=== PATIENT | male | born 1955 | race Caucasian/White ===

== ENCOUNTER → 2024-01-26 08:03 | Outpatient (REF) | payer OTHER, SELFPAY | LOC: DHCBC/DCA 08:03 | PROVIDERS: ATTENDING PHYSICIAN Internal Medicine Cardiovascular Disease; FAMILY PHYSICIAN Family Medicine | DX: I48.19 Other persistent atrial fibrillation (principal); I10 Essential (primary) hypertension; Z98.890 Other specified postprocedural states; I42.9 Cardiomyopathy, unspecified; I34.0 Nonrheumatic mitral (valve) insufficiency | CPT/HCPCS: 78452; 93017; A9500; J2785 ==

== ENCOUNTER 2024-10-05 07:43 | Emergency (ER) | payer OTHER, SELFPAY ==
[2024-10-05 07:45] VITALS: BP 125/86
--- NOTE | 2024-10-05 10:02 | ED.MUSCINJ ---
HPI-Injury
General
Chief Complaint: Musculo-Skeletal Complaint
Source: patient
Exam Limitations: none
Time Seen by Provider: 10/05/24 09:14
History of Present Illness-Injury
Initial Injury comments:
69-year-old male presents complaining of right shoulder right elbow and right ankle pain after falling out of his truck yesterday. 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 He tried to hold onto with his right arm while falling but injured
himself. He is having difficulty walking secondary to the pain in his ankle. No other complaints.
Past History
Past History
ED Past Medical History: HTN, Hypercholesterolemia and Other (Obesity, lumbar disc disease)
ED Past Surgical History: Appendectomy, Orthopedic (Total knee replacement) and Other (Partial gastrectomy for treatment of obesity, 2007)
Social History
Tobacco: Former smoker
Alcohol: Occasional
Personal:
Living: with family
Employment: Employed
Family History
Family History: Negative Early CAD
Phy Exam
Physical Exam
Physical Exam:
General: Well-appearing obese male no acute respiratory distress
Musculoskeletal exam: Right shoulder tender diffusely no deformities slightly decreased range of motion. The right elbow is tender over the medial aspect of the elbow he has near full extension but flexion is not full. He has increased pain with
stressing the medial aspect of the elbow. Right ankle swollen and tender diffusely without deformity.
Skin is intact without laceration or abrasion
Injury Course
Orders/Labs/Results
Orders:
Orders
10/05/24 07:49
Shoulder, Right, Trauma [CR Shoulder, Trauma - Right] Urgent
Comment:
Reason For Exam: injury
10/05/24 07:50
Ankle, Right 3 view CR [CR Ankle - Right Min 3 Views *] Urgent
Comment:
Reason For Exam: injury
Elbow, 3 View, Right [CR Elbow - Right Min 3 Views] Urgent
Comment:
Reason For Exam: injury
MDM/Problems Addressed
Differential Diagnosis Includes:
Fall onto right side no head strike. Right shoulder elbow and right ankle pain. Consider fractures versus sprains versus contusions. X-rays of the right shoulder elbow and ankle were ordered through triage which I have personally visualized and
are negative for acute fractures. There is significant arthritis in all of these joints. Patient having difficulty ambulating secondary to his ankle pain. Will attempt to place a boot for support.
*Critical Care Note
Total Time (30-74mins, 75-104mins- exclusive of procedures): Not Applicable
ED Attending Note
-
Portions of this chart may have been created with voice recognition software.� Occasional wrong word or��sound alike� substitutions may have occurred due to the inherent limitations of voice recognition software.
Discharge Plan
Departure
Patient Disposition: Home (Routine Discharge)
Date of Disposition: 10/05/24
Time of Disposition: 10:24
Patient with high blood pressure during this ER visit?: No
Discharge Problem:
Ankle sprain
Instructions: Muscle and Bone Pain (DC)
Prescriptions:
No Action
cyclobenzaprine 10 MG tablet
10 mg PO DAILY PRN (Reason: muscle spasms)
Eliquis 5 mg tablet
5 mg PO BID
lisinopril 5 mg Tablet
5 mg PO DAILY Qty: 30 0RF
pantoprazole [Protonix] 40 mg tablet,delayed release (DR/EC)
40 mg PO DAILY Qty: 30 0RF
amiodarone 200 mg tablet
200 mg PO DAILY Qty: 0 0RF
metoprolol succinate 25 mg Tablet Extended Release 24 Hr
50 mg PO BID Qty: 60 0RF
naproxen 500 mg Tablet
500 mg PO PRN PRN (Reason: pain)
Referrals:
Han Hermosillo MD [Family Provider] -
Activity Restrictions/Additional Instructions:
Rest. Use Tylenol for pain. Use boot for support when ambulating. Return if worse otherwise follow-up with your orthopedic doctor
Interventions
Interventions:
*Risk Screen - Suicide Last Done: 10/05/24 07:45
*General Assessment Last Done: 10/05/24 07:45
*Neglect/Abuse Screening Last Done: 10/05/24 07:45
ED- Fall Risk Assessment Last Done: 10/05/24 09:59
ED-Musculoskeletal Assessment Last Done: 10/05/24 09:59
Discharge Date and Time
Print Language: OCCITAN
[2024-10-05 10:38] VITALS: BP 149/79
== END 2024-10-05 10:39 | disposition home or self-care (01) ==
LOC: EMR 07:43
PROVIDERS: EMERGENCY PHYSICIAN Emergency Medicine; FAMILY PHYSICIAN Family Medicine
DX: S93.409A Sprain of unspecified ligament of unspecified ankle, initial encounter (principal); W19.XXXA Unspecified fall, initial encounter; I10 Essential (primary) hypertension; E78.00 Pure hypercholesterolemia, unspecified; E66.9 Obesity, unspecified; Z87.891 Personal history of nicotine dependence; Z90.49 Acquired absence of other specified parts of digestive tract; Z96.659 Presence of unspecified artificial knee joint
CPT/HCPCS: 99283; 73030; 73080; 73610

== ENCOUNTER → 2024-12-20 07:19 | Outpatient (REF) | payer OTHER, SELFPAY | LOC: HWRCS 07:19 | PROVIDERS: ATTENDING PHYSICIAN Internal Medicine Cardiovascular Disease; FAMILY PHYSICIAN Family Medicine | DX: I50.32 Chronic diastolic (congestive) heart failure (principal) | CPT/HCPCS: 93306 ==

== ENCOUNTER → 2024-12-23 09:38 | Outpatient (REF) | payer OTHER, SELFPAY | LOC: HWRAD 09:38 | PROVIDERS: ATTENDING PHYSICIAN Nurse Practitioner; FAMILY PHYSICIAN Family Medicine | DX: K70.30 Alcoholic cirrhosis of liver without ascites (principal); D50.0 Iron deficiency anemia secondary to blood loss (chronic) | CPT/HCPCS: 76700 ==

== ENCOUNTER → 2025-01-12 09:44 | Outpatient (REF) | payer OTHER, SELFPAY | LOC: HWRAD 09:44 | PROVIDERS: ATTENDING PHYSICIAN Orthopaedic Surgery Hand Surgery; FAMILY PHYSICIAN Family Medicine | DX: M19.019 Primary osteoarthritis, unspecified shoulder (principal) | CPT/HCPCS: 73200 ==

== ENCOUNTER → 2025-01-29 06:20 | Outpatient (REF) | payer OTHER, SELFPAY | LOC: MRI 3T 06:20 | PROVIDERS: ATTENDING PHYSICIAN Orthopaedic Surgery Hand Surgery; FAMILY PHYSICIAN Family Medicine | DX: M25.511 Pain in right shoulder (principal) | CPT/HCPCS: 73221 ==

== ENCOUNTER → 2025-02-17 07:24 | Outpatient (REF) | payer OTHER, SELFPAY | LOC: HWRCS 07:24 | PROVIDERS: ATTENDING PHYSICIAN Internal Medicine Cardiovascular Disease; FAMILY PHYSICIAN Family Medicine | DX: I42.9 Cardiomyopathy, unspecified (principal); I48.91 Unspecified atrial fibrillation | CPT/HCPCS: 78452; 93017; A9500; J2785 ==

== ENCOUNTER 2025-05-13 00:29 | Observation (INO) | payer OTHER, SELFPAY ==
[2025-05-12 18:21] VITALS: BP 111/68
[2025-05-12 18:58] LABS: ALT (SGPT) 15 U/L (0-50); AST (SGOT) 25 U/L (17-59); Albumin 4.7 g/dl (3.5-5.0); Alkaline Phosphatase 61 U/L (38-126); Blood Urea Nitrogen 35 mg/dl (9-20); Calcium 8.9 mg/dl (8.4-10.2); Carbon Dioxide 20 mmol/L (22-30); Chloride 99 mmol/L (98-107); Glucose 115 mg/dl (70-99); Potassium 4.8 mmol/L (3.5-5.1); Sodium 132 mmol/L (135-145); Total Protein 7.9 g/dl (6.3-8.2); eGFR 39.99
[2025-05-12 19:00] LABS: Urine Character Clear (Clear)
[2025-05-12 19:38] LABS: Hematocrit 42.4 % (39.0-52.0); Hemoglobin 14.2 g/dL (13.0-18.0); Mean Corp Hgb Conc. 33.5 g/dL (33.0-37.0); Mean Corpuscular Volume 91.0 fL (80.0-94.0); Nucleated Red Blood Cells % 0 % (-); Platelet Count 107 10^3/uL (130-400); Red Cell Dist. Width 13.1 % (11.5-14.5)
[2025-05-12 19:56] LABS: Urine Red Blood Cell >100 /HPF (0-2); Urine White Cell 26-30 /HPF (0-5)
[2025-05-12 21:08] VITALS: BP 121/67
[2025-05-12 21:24] VITALS: BMI 44.0
[2025-05-12] MEDS: ROCEPHIN 1000 MG IV (21:43)
[2025-05-12] MEDS: NSS 1000 IV (21:45)
[2025-05-12 22:31] VITALS: BP 110/73
--- NOTE | 2025-05-12 22:58 | ED.GENMED ---
History of Present Illness
General
Chief Complaint: Male Genito-Urinary Symptoms
Time Seen by Provider: 05/12/25 20:54
History of Present Illness
History of Present Illness:
70-year-old male presents emergency department for evaluation of urinary urgency, frequency, and dark urine for the past 1 to 2 days. Reports lower abdominal discomfort as well. No flank pain or nausea/vomiting. He has a prior history of urinary
urgency and follows with urology however states that this is much worse than normal.
Past History
Past History
ED Past Medical History: HTN, Hypercholesterolemia and Other (Obesity, lumbar disc disease)
ED Past Surgical History: Appendectomy, Orthopedic (Total knee replacement) and Other (Partial gastrectomy for treatment of obesity, 2007)
Social History
Tobacco: Former smoker
Alcohol: Occasional
Personal:
Living: with family
Employment: Employed
Family History
Family History: Negative Early CAD
Review of Systems
Review of Systems
Allergies reviewed?: Yes
All Other Systems: ROS reviewed and negative except as documented in HPI and ROS
Phy Exam
Physical Exam
Physical Exam:
GEN: Well appearing, NAD, WDWN
HEENT: Oral mucosa moist, no scleral icterus
Cardiac: Mildly tachycardic, regular
Lung: No respiratory distress, no tachypnea, lungs clear to auscultation
Abdomen: Soft, grossly nontender although obesity limits exam
MSK: No gross deformity or injuries
Skin: Good color, no pallor or jaundice, no rashes
Neuro: AO x3, moves all extremities freely
Psych: Calm, cooperative
Course
Orders/Labs/Results
Orders:
Orders
05/12/25 18:34
CMP [Comprehensive Metabolic Panel] Urgent
Complete Blood Count/With Diff Urgent
Urinalysis Reflex To Culture Urgent
Date Specimen was Collected: 05/12/25
Time Specimen was Collected: 18:25
Urine Microscopic Reflex Cult Urgent
Urine Culture Urgent
SITA Source: U
Specimen Description:
Date Specimen was Collected: 05/12/25
Time Specimen was Collected: 18:25
05/12/25 21:36
CT Abd/pel Without Iv Or Oral Urgent
Comment:
Reason For Exam: UTI/hematuria
0.9% Sodium Chloride 1000 ml [Nss] 1,000 ml IV BOLUS
CefTRIAXone [Rocephin] 1,000 mg IV NOW STA
05/12/25 22:45
Blood Culture Q30M
SITA Source: Blood/Venous
Specimen Description:
05/12/25 22:46
Lactic Acid Q4H
Comment: CANCEL 2nd LACTIC ACID IF 1st LACTIC ACID IS LESS THAN 2
Blood Culture Q30M
SITA Source: Blood/Venous
Specimen Description:
05/13/25 02:45
Lactic Acid Q4H
Comment: CANCEL 2nd LACTIC ACID IF 1st LACTIC ACID IS LESS THAN 2
Abnormal Lab Results
05/12/25
18:34
WBC 18.8 H 10^3/uL
(4.8-10.8)
RBC 4.66 L 10^6/uL
(4.70-6.10)
Plt Count 107 L 10^3/uL
(130-400)
MPV 12.8 H fL
(7.4-10.4)
Abs Immat Gran (auto) 0.1 H 10^3/uL
(0-0.05)
Absolute Neuts (auto) 16.1 H 10^3/uL
(1.4-6.5)
Absolute Monos (auto) 1.0 H 10^3/uL
(0.1-0.6)
Neutrophils % 85.2 H %
(42.2-75.2)
Lymphocytes % 8.6 L %
(20.5-51.1)
Sodium 132 L mmol/L
(135-145)
Carbon Dioxide 20 L mmol/L
(22-30)
BUN 35 H mg/dl
(9-20)
Creatinine 1.8 H mg/dL
(0.7-1.3)
Glucose 115 H mg/dl
(70-99)
Urine Ketones 1+ A
(Negative)
Ur Occult Blood Reflex 4+ A
(Negative)
Urine Bilirubin 1+ A
(Negative)
Leukocyte Esterase Rfl 2+ A
(Negative)
Urine RBC >100 A /HPF
(0-2)
Urine WBC (Reflex) 26-30 A /HPF
(0-5)
Urine Bacteria (Reflex) Few A
(Negative)
Urine Albumin (Reflex) 3+ A
(Neg - Trace)
05/12/25 18:34
05/12/25 18:34
Vital Signs
Initial and Last Documented VS:
Initial Vital Signs
Temp Pulse Resp BP Pulse Ox
98.4 F 93 18 111/68 93
05/12/25 18:21 05/12/25 18:21 05/12/25 18:21 05/12/25 18:21 05/12/25 18:21
Last Documented Vital Signs
Temp Pulse Resp BP Pulse Ox
100.0 F 76 24 121/67 94
05/12/25 21:08 05/12/25 22:17 05/12/25 22:17 05/12/25 21:08 05/12/25 21:45
MDM/Problems Addressed
MDM/Problems Addressed:
Clinical presentation most consistent with febrile UTI, will admit for IV antibiotics
*Pulse Oximetry
SaO2: 94
Nasal Cannula flow liters per minute: 2
Oxygen Mode of Delivery: Room air
Patient hypoxic: no
*Critical Care Note
Total Time (30-74mins, 75-104mins- exclusive of procedures): Not Applicable
ED Attending Note
-
Portions of this chart may have been created with voice recognition software.� Occasional wrong word or��sound alike� substitutions may have occurred due to the inherent limitations of voice recognition software.
Discharge Plan
Departure
Patient Disposition: Admit
Date of Disposition: 05/12/25
Time of Disposition: 23:03
Admit to: Med/Surg
Presentation/result/management discussed w/ accepting MD/DO: Hospitalist
Discharge Problem:
Urinary tract infection
Prescriptions:
No Action
Eliquis 5 mg tablet
5 mg PO .SEE BELOW
Patient Comments:
05/12/2025, currently on hold as of 2 days ago per pt.; pt. was taking 5 mg BID before placed on hold.
pantoprazole [Protonix] 40 mg tablet,delayed release (DR/EC)
40 mg PO DAILY Qty: 30 0RF
amiodarone 200 mg tablet
200 mg PO DAILY Qty: 0 0RF
metoprolol succinate 50 mg Tablet Extended Release 24 Hr
50 mg PO BID
spironolactone 25 mg tablet
25 mg PO DAILY
lisinopril 10 mg Tablet
10 mg PO DAILY
diphenhydramine-acetaminophen [Tylenol PM Extra Strength] 25-500 mg Tablet
2 tab PO BIDPRN PRN (Reason: mild pain)
Referrals:
Han Hermosillo MD [Family Provider, Family Practice]
Interventions
Interventions:
*Risk Screen - Suicide Last Done: 05/12/25 18:21
*General Assessment Last Done: 05/12/25 18:21
*Neglect/Abuse Screening Last Done: 05/12/25 18:21
*ED- Fall Risk Assessment Last Done: 05/12/25 21:24
*ED COVID-19 Vaccine History Last Done: 05/12/25 18:21
ED-Male Genitourinary Assessment Last Done: 05/12/25 21:23
Discharge Date and Time
Print Language: CENTRAL AFRICAN
[2025-05-12 23:00] VITALS: BP 110/74
--- NOTE | 2025-05-12 23:19 | HPS.HSE ---
Family Physician
-
Family Physician: Han Hermosillo
Chief Complaint
-
urinary symptoms
History of Present Illness
Patient is a 70-year-old male with past medical history significant for hypertension, hypercholesteremia, anemia, alcoholic cirrhosis of liver without ascites, atrial fibrillation, thrombocytopenia, obesity, lumbar disc disease and BPH who presented
to [facility] ED for evaluation of urinary symptoms. Patient reports having urinary urgency, frequency and dark urine for past day or two. He does confirm lower abdominal discomfort. He does report history of urinary urgency and follows with Urologist but
this is significantly worse than previous episodes. He reports calling Urology office and Dr. Elmore instructed him to hold Eliquis. Denies any cough, shortness of breath, chest pain, nausea, vomting or bowel changes.
Medical History
Past Medical History
Past Medical History: Reports Other
Additional Past Medical History:
hypertension
hypercholesteremia
anemia
alcoholic cirrhosis of liver without ascites
atrial fibrillation
thrombocytopenia
obesity
lumbar disc disease
BPH
Past Surgical History: Reports Other
Additional Past Surgical History:
Appendectomy
Cholecystectomy(2011)
knee replacement
b/l tkr
bariatric surg
PVI ablation 07/03/23
Social History
Tobacco: Former Smoker
Alcohol: Occasional
Drug: None
Personal: Single
Living: Alone
Family History
Family History: Not pertinent
Allergies / Home Medications
Allergies reflects when Allergies were last updated in [facility].
Home Medications with original date entered in [facility]
Allergy/Medication List:
Allergies
Allergy/AdvReac Type Severity Reaction Status Date / Time
No Known Allergies Allergy Verified 05/12/25 18:24
Home Medications
apixaban 5 mg tablet (Eliquis) 5 mg PO .SEE BELOW Blood clot prevention/tx 02/17/23
pantoprazole 40 mg tablet,delayed release (Protonix) 40 mg PO DAILY #30 tabs 02/21/23
amiodarone 200 mg tablet 200 mg PO DAILY Arrhythmia #0 tabs 07/03/23
diphenhydramine 25 mg-acetaminophen 500 mg tablet (Tylenol PM Extra Strength) 2 tab PO BIDPRN PRN mild pain 05/12/25
lisinopril 10 mg tablet 10 mg PO DAILY 05/12/25
metoprolol succinate 50 mg tablet,extended release 24 hr 50 mg PO BID 05/12/25
spironolactone 25 mg tablet 25 mg PO DAILY 05/12/25
Review of Systems
-
History Source: Patient
Constitutional: Reports Fever and Chills
EENT: Reports No Symptoms
Respiratory: Reports No Symptoms
Cardiac: Reports No Symptoms
Abdomen/GI: Reports No Symptoms
: Reports Frequency, Urgency and Dark Urine
Musculoskeletal: Reports No Symptoms
Skin: Reports No Symptoms
Neurological: Reports No Symptoms
Endocrine: Reports No Symptoms
Hematologic/Lymphatic: Reports No Symptoms
Psych: Reports No Symptoms
Physical Exam
Vital Signs
Vital Signs
Temp Pulse Resp BP Pulse Ox
99.7 F 79 20 110/74 96
05/12/25 23:17 05/12/25 23:15 05/12/25 23:15 05/12/25 23:00 05/12/25 23:15
Physical Exam
General: Well Developed, Well Nourished, No Apparent Distress and Morbidly Obese
HEENT: NormoCephalic, Moist mucous membranes and Atraumatic
Respiratory: Clear and Non Labored Respirations
Cardiac: S1/S2, Regular Rhythm and Tachycardia
GI: Soft, Non Tender, Non Distended and Normal Bowel Sounds
Rectal: Deferred by Provider
Genito-urinary: Deferred by me
Musculoskeletal: No Clubbing, No Cyanosis and No Edema
Skin: IV/Catheter Site
Neuro: Awake, Alert, AO x 3 and Nonfocal/grossly intact
Psych: Calm
Laboratory Results
-
05/12/25 18:34
05/12/25 18:34
Laboratory Results
Lactic Acid 1.2 mmol/L (0.7-2.0) 05/12/25 22:46
Total Bilirubin 1.2 mg/dl (0.2-1.3) 05/12/25 18:34
AST 25 U/L (17-59) 05/12/25 18:34
ALT 15 U/L (0-50) 05/12/25 18:34
Alkaline Phosphatase 61 U/L (38-126) 05/12/25 18:34
Data Reviewed
-
CT Scan: Report Reviewed by me (Abd/Pel: 1. Mild diffuse urinary bladder wall thickening and trabeculation. Diagnostic possibilities are (1) acute cystitis or (2) chronic urinary bladder outlet obstruction. 2. Mild enlargement of the prostate
gland containing radiation seeds. 3. Large amount of perinephric fat stranding arou)
Lab Data: Labs Reviewed by me (WBC 18.8, plt 107, Neut 85.2, Na+ 132, BUN 35, Creat 1.8, eGFR 39.99, Lactic 1.2)
Impression/Plan
-
IMPRESSION/PLAN:
#urinary symptoms (urgency/frequency/dark urine) likely 2/2 UTI
#BPH
WBC 18.8, Neut 85.2, Lactic 1.2
UA: indicative of UTI
Urine Cx: pending
Blood Cx: pending
Abd/Pel CT: 1. Mild diffuse urinary bladder wall thickening and trabeculation. Diagnostic possibilities are (1) acute cystitis or (2) chronic urinary bladder outlet obstruction.
2. Mild enlargement of the prostate gland containing radiation seeds.
3. Large amount of perinephric fat stranding around both kidneys which is likely secondary to chronic bilateral renal disease. Acute pyelonephritis is an alternative less likely diagnostic possibility.
4. Severe colonic diverticulosis.
5. Mild hepatosplenomegaly.
6. Previous cholecystectomy, appendectomy, and sleeve gastrectomy.
7. Fusiform infrarenal abdominal aortic aneurysm (2.6 cm diameter).
8. Severe calcific atherosclerotic plaque in the coronary arteries.
9. Very severe discogenic degenerative disease at L4/L5 and L5/S1.
10. Grade 2 anterolisthesis of L5 on S1.
- Admit to med/surg
- IV Rocephin
- IVF NSS 80cc/hr
- supportive care
- bladder scan/straight cath protocol
#acute kidney injury
Na+ 132, BUN 35, Creat 1.8, eGFR 39.99
- IVF
- monitor BMP
#hypertension
- continue lisinopril, metoprolol and spironolactone
#atrial fibrillation
- amiodarone
- Eliquis on hold
#anemia
hgb 14.2, hct 42.4
- stable
- monitor CBC
#thrombocytopenia
plt 107
- stable
- monitor CBC
#obesity
s/p gastric bypass
#hypercholesteremia
#lumbar disc disease
#alcoholic cirrhosis of liver without ascites
Code status: full code
DVT prophylaxis: SCDs
--- NOTE | 2025-05-12 23:48 | W.PN.UPDATE ---
Update Note
Progress Note Update
Brief admit note.
Please see midlevel note for full details
70-year-old man presents for evaluation of urinary urgency, frequency, and dark urine for the past 1 to 2 days. He Reports lower abdominal discomfort as well. No flank pain or nausea/vomiting. He has a prior history of urinary urgency and follows
with urology however states that this is much worse than normal. However, at the time of admit he told me that he was feeling better once he came to the ED.
Past History
essential HTN,
Hypercholesterolemia
Obesity,
lumbar disc disease
Appendectomy,
Total knee replacement
Partial gastrectomy for treatment of obesity, 2007
CT results:
1. Mild diffuse urinary bladder wall thickening and trabeculation. Diagnostic possibilities are (1) acute cystitis or (2) chronic urinary bladder outlet obstruction.
2. Mild enlargement of the prostate gland containing radiation seeds.
3. Large amount of perinephric fat stranding around both kidneys which is likely secondary to chronic bilateral renal disease. Acute pyelonephritis is an alternative less likely diagnostic possibility.
4. Severe colonic diverticulosis.
5. Mild hepatosplenomegaly.
6. Previous cholecystectomy, appendectomy, and sleeve gastrectomy.
7. Fusiform infrarenal abdominal aortic aneurysm (2.6 cm diameter).
8. Severe calcific atherosclerotic plaque in the coronary arteries.
9. Very severe discogenic degenerative disease at L4/L5 and L5/S1.
10. Grade 2 anterolisthesis of L5 on S1.
Exam:
Calm, NAD
[id number], no MRG
Lungs clear
Abd soft, NT, ND
A/P:
70 man with probable UTI
1. Probable UTI with WBC 0f 18, has known large prostate.
IV abx (ceftriaxone)
Follow urine cultures
Continue current meds for PMH
See midlevel note for further details.
[2025-05-13] VITALS: BP 126/80
[2025-05-13 01:00] VITALS: BP 143/88
[2025-05-13 01:35] VITALS: BP 131/76; BMI 43.6
[2025-05-13 01:47] VITALS: BMI 43.6
[2025-05-13] MEDS: NSS 1000 IV ×2 (02:00→14:33)
[2025-05-13 05:42] LABS: Hematocrit 37.8 % (39.0-52.0); Hemoglobin 12.7 g/dL (13.0-18.0); Mean Corp Hgb Conc. 33.6 g/dL (33.0-37.0); Mean Corpuscular Volume 90.6 fL (80.0-94.0); Platelet Count 82 10^3/uL (130-400); Red Cell Dist. Width 13.0 % (11.5-14.5)
[2025-05-13 06:36] LABS: Blood Urea Nitrogen 33 mg/dl (9-20); Calcium 8.3 mg/dl (8.4-10.2); Carbon Dioxide 18 mmol/L (22-30); Chloride 101 mmol/L (98-107); Estimated Creatinine Clearance 62 ml/min; Glucose 101 mg/dl (70-99); Potassium 4.3 mmol/L (3.5-5.1); Sodium 130 mmol/L (135-145); eGFR 46.06
--- NOTE | 2025-05-13 07:17 | PTCARENOTE ---
Patient arrived on unit from ED via stretcher. Patient able to stand-pivot from stretcher to bed in 338-2 on . Patient AAOx3 and able to make needs known. No c/o pain. Using urinal at bedside. Patient brought own CPAP from home. Oriented to
unit, call vega within reach. Plan of care ongoing.
[2025-05-13 07:51] VITALS: BP 119/64
[2025-05-13] MEDS: TOPROL XL 50 MG PO ×2 (08:08→20:57)
[2025-05-13] MEDS: PACERONE 200 MG PO (08:08)
[2025-05-13] MEDS: ZESTRIL 10 MG PO (08:08)
[2025-05-13] MEDS: PROTONIX 40 MG PO (08:08)
[2025-05-13] MEDS: ALDACTONE 25 MG PO (08:08)
--- NOTE | 2025-05-13 08:18 | W.PN.HOSP.TC ---
Today's Communication/Plan
-
see plan
Assessment / Plan
Assessment / Plan
Gen: NAD, AAOx3.
Eyes: EOMI, PERRLA, no scleral icterus.
Neck: supple.
CV: RRR, +S1/S2, no m/r/g.
Resp: CTAB, no rales, wheezes, or rhonchi.
Abd: +BS, soft, NT, ND
Skin: No rashes.
Neuro: CN 2-12 intact, non-focal.
Psych: Normal mood and affect.
CT A/P:
1. Mild diffuse urinary bladder wall thickening and trabeculation. Diagnostic possibilities are (1) acute cystitis or (2) chronic urinary bladder outlet obstruction.
2. Mild enlargement of the prostate gland containing radiation seeds.
3. Large amount of perinephric fat stranding around both kidneys which is likely secondary to chronic bilateral renal disease. Acute pyelonephritis is an alternative less likely diagnostic possibility.
4. Severe colonic diverticulosis.
5. Mild hepatosplenomegaly.
6. Previous cholecystectomy, appendectomy, and sleeve gastrectomy.
7. Fusiform infrarenal abdominal aortic aneurysm (2.6 cm diameter).
8. Severe calcific atherosclerotic plaque in the coronary arteries.
9. Very severe discogenic degenerative disease at L4/L5 and L5/S1.
10. Grade 2 anterolisthesis of L5 on S1.
Sepsis (POA) due to acute UTI:
-underlying BPH
-sepsis, a/e/b leukocytosis, tachypnea, source UTI (POA)
-cont IV Rocephin
-follow BCxs/UCx
-bladder scans, urinary retention protocol
VERONICA:
-cont IVFs
-stop aldactone/Lisinopril
-c/s renal
Other problems:
Hyponatremia, trend
Essential HTN: cont BB, hold JORGE LUIS/aldactone with VERONICA
Persistent atrial fibrillation: Cont Amio/BB, resume Eliquis
Anemia: drop in Hb likely dilutional, trend Hb
Chronic thrombocytopenia
Morbid obesity due to excess calories, h/o gastric bypass
HLD
Alcoholic cirrhosis without ascites
FULL/Eliquis
Total time spent on today's encounter was 50 minutes which included time spent in counseling the patient/family regarding diagnosis and treatment plan as listed above, goals of care, and symptom management. Case was discussed with nursing staff,
specialists, and care coordinators/case management. All labs and imaging personally reviewed by me. Remainder the time spent in detailed review of previous records, lab data, imaging, and other medical provider documentation.
Anticipated Discharge: 24 - 48 hours
Subjective/Interval History
-
Date of Service: May 13, 2025
No new complaints.
Objective Data
-
Labs:
Laboratory Results
05/13/25
05:12
WBC 15.7 H
Hgb 12.7 L
Hct 37.8 L
Plt Count 82 L D
Sodium 130 L
Potassium 4.3
Chloride 101
Carbon Dioxide 18 L
BUN 33 H
Creatinine 1.6 H
Glucose 101 H
Calcium 8.3 L
Vital Signs:
Vital Signs
Temp Pulse Resp BP Pulse Ox
98.7 F 94 16 119/64 93
05/13/25 07:51 05/13/25 08:08 05/13/25 07:51 05/13/25 08:08 05/13/25 07:51
I&O
05/12/25 05/13/25 05/14/25
06:59 06:59 06:59
Intake Total 480 / 480
Output Total 425 / 425
Balance 55 / 55
[2025-05-13 08:51] LABS: Hepatitis C Antibody Negative (Negative)
[2025-05-13] MEDS: ELIQUIS 5 MG PO ×2 (11:07→20:57)
--- NOTE | 2025-05-13 13:54 | W.CON.NEPH ---
Consultation
-
Date/Time Consultation Requested: 05/13/25 1008
Date/Time Consultation Performed: 05/13/25 1615
Requesting Provider: Stiven Lawrence
Performing Provider: Claire Davila
Reason for Consultation: VERONICA
Medical History
-
Chief Complaint: urinary symp
History of Present Illness:
70-year-old male with past medical history significant for hypertension on lisinopril metoprolol, spironolactone, hypercholesteremia, anemia, alcoholic cirrhosis of liver without ascites, atrial fibrillation on Amiodarone and Eliquis,
thrombocytopenia, obesity, lumbar disc disease and BPH who presented to [facility] ED for evaluation of urinary symptoms on 05/12. Patient reports having urinary urgency, frequency and dark urine for two days with lower abdominal discomfort with fever. He
does report history of urinary urgency and follows with Urologist but this is significantly worse than previous episodes. He reports calling Urology office and Dr. Elmore instructed him to hold Eliquis. Denies any cough, shortness of breath, chest
pain, nausea, vomting or bowel changes. He is waiting to have right shoulder surgery in 20days. Denies use of NSAIDs. His urinary symptoms are improving, urine islighter now but remians dark.
Past Medical History
hypertension
hypercholesteremia
anemia
alcoholic cirrhosis of liver without ascites
atrial fibrillation
thrombocytopenia
obesity
lumbar disc disease
BPH
Past Surgical History: Other (Appendectomy Cholecystectomy(2011) knee replacement b/l tkr bariatric surg PVI ablation 07/03/23 )
Social History
Tobacco: Former Smoker
Alcohol: Occasional
Drug: None
Living: Alone
Family History
Family History: Not Pertinent
Allergies / Home Medications
Allergy/AdvReac Type Severity Reaction Status Date / Time
No Known Allergies Allergy Verified 05/12/25 18:24
�Medication �Instructions �Recorded �Confirmed �Type
apixaban 5 mg tablet (Eliquis) 5 mg PO .SEE BELOW Blood 02/17/23 05/12/25 History
clot prevention/tx
pantoprazole 40 mg tablet,delayed 40 mg PO DAILY #30 tabs 02/21/23 05/12/25 Rx
release (Protonix)
amiodarone 200 mg tablet 200 mg PO DAILY Arrhythmia #0 tabs 07/03/23 05/12/25 Rx
diphenhydramine 25 2 tab PO BIDPRN PRN mild pain 05/12/25 05/12/25 History
mg-acetaminophen 500 mg tablet
(Tylenol PM Extra Strength)
lisinopril 10 mg tablet 10 mg PO DAILY 05/12/25 05/12/25 History
metoprolol succinate 50 mg 50 mg PO BID 05/12/25 05/12/25 History
tablet,extended release 24 hr
spironolactone 25 mg tablet 25 mg PO DAILY 05/12/25 05/12/25 History
Physical Exam
Vital Signs
Vital Signs
Temp Pulse Resp BP Pulse Ox
98.7 F 94 16 119/64 93
05/13/25 07:51 05/13/25 08:08 05/13/25 07:51 05/13/25 08:08 05/13/25 07:51
Lab Results
WBC 15.7 10^3/uL (4.8-10.8) H 05/13/25 05:12
RBC 4.17 10^6/uL (4.70-6.10) L 05/13/25 05:12
Hgb 12.7 g/dL (13.0-18.0) L 05/13/25 05:12
Hct 37.8 % (39.0-52.0) L 05/13/25 05:12
Plt Count 82 10^3/uL (130-400) L D 05/13/25 05:12
Sodium 130 mmol/L (135-145) L 05/13/25 05:12
Potassium 4.3 mmol/L (3.5-5.1) 05/13/25 05:12
Chloride 101 mmol/L (98-107) 05/13/25 05:12
Carbon Dioxide 18 mmol/L (22-30) L 05/13/25 05:12
BUN 33 mg/dl (9-20) H 05/13/25 05:12
Creatinine 1.6 mg/dL (0.7-1.3) H 05/13/25 05:12
eGFR 46.06 05/13/25 05:12
Glucose 101 mg/dl (70-99) H 05/13/25 05:12
Calcium 8.3 mg/dl (8.4-10.2) L 05/13/25 05:12
Albumin 4.7 g/dl (3.5-5.0) 05/12/25 18:34
Physical Exam
General: Awake, Alert, Oriented, AOx3, No Distress and Nontoxic
HEENT: EOMI, Anicteric and Facial Symmetry
Respiratory: Clear, Normal Excursion and Nonlabored Respirations
Cardiac: S1/S2 and Regular Rate/Rhythm
Breast: Deferred by me
Abdomen: Soft, Nontender and Nondistended
Musculoskeletal: No Cyanosis and No Edema
Skin: No Rash
Neuro: Nonfocal/Grossly Intact
Psych: Mood/afflect pleasant, Insight/judgement good and Appropriate
Data Reviewed
-
Radiology: Report Reviewed by me and Discussed with Patient
Labs: Labs Reviewed by me and Discussed with Patient
Assessment/Plan
-
IMP:
Sepsis (POA) due to acute UTI
Large amount of perinephric fat stranding around both kidneys which is likely secondary to chronic bilateral renal disease vs Acute pyelonephritis
VERONICA
Hyponatremia
BPH
Essential HTN
Persistent atrial fibrillation
Anemia
Chronic thrombocytopenia
Morbid obesity due to excess calories, h/o gastric bypass
HLD
Alcoholic cirrhosis without ascites
Plan:
a/w sepsis and UTI , chr SCHAFFER with h/o BPH
perinephric stranding -not sure acute vs chronic
cont abx per primary, await for cx report
VERONICA-possible prerenal with sepsis abut he has chr SCHAFFER changes, BPH
follow bladder scan , 8cc
no hydro noted on CT , non obst stone
worsening met acidosis-change to bicarb IVF from NS
monitor mild hyponatremia-
hold ACEI and aldactone
BP stable
labs lauro m
d/w pt
[2025-05-13 15:43] VITALS: BP 111/63
[2025-05-13] MEDS: SODIUM BICARBONATE 1075 MEQ IV (17:20)
--- NOTE | 2025-05-13 17:27 | CM ---
Alert awake oriented patient who lives alone in a 2 story home with 0 step to enter and 0 steps to bed and bathroom. He is independent in driving and in all activities of daily living.He was offered VN he declined need.He uses CPAP from [facility].
[place] letter given signed on chart.
Pt [facility] hx / No SNF history
Pharmacy [facility]
PCP DR Vásquez
PLAN Home Declined VN
[2025-05-13] MEDS: ROCEPHIN 1000 MG IV (21:21)
[2025-05-13] MEDS: STERILE WATER FOR INJECTION 10 ML IV (21:22)
[2025-05-13 23:00] VITALS: BP 104/65
[2025-05-14 06:00] VITALS: BMI 43.4
[2025-05-14 07:33] VITALS: BP 111/68
--- NOTE | 2025-05-14 07:51 | W.PN.HOSP.TC ---
Today's Communication/Plan
-
see plan
Assessment / Plan
Assessment / Plan
Gen: NAD, AAOx3.
Eyes: EOMI, PERRLA, no scleral icterus.
Neck: supple.
CV: remains RRR, +S1/S2, no m/r/g.
Resp: remains CTAB, no rales, wheezes, or rhonchi.
Abd: remains +BS, soft, NT, ND
Skin: No rashes.
Neuro: CN 2-12 intact, non-focal.
Psych: Normal mood and affect.
05/12/25 23:31 Blood/Venous Blood Culture - Preliminary
No Growth in 24 hours- Final report to follow
05/12/25 22:46 Blood/Venous Blood Culture - Preliminary
No Growth in 24 hours- Final report to follow
CT A/P:
1. Mild diffuse urinary bladder wall thickening and trabeculation. Diagnostic possibilities are (1) acute cystitis or (2) chronic urinary bladder outlet obstruction.
2. Mild enlargement of the prostate gland containing radiation seeds.
3. Large amount of perinephric fat stranding around both kidneys which is likely secondary to chronic bilateral renal disease. Acute pyelonephritis is an alternative less likely diagnostic possibility.
4. Severe colonic diverticulosis.
5. Mild hepatosplenomegaly.
6. Previous cholecystectomy, appendectomy, and sleeve gastrectomy.
7. Fusiform infrarenal abdominal aortic aneurysm (2.6 cm diameter).
8. Severe calcific atherosclerotic plaque in the coronary arteries.
9. Very severe discogenic degenerative disease at L4/L5 and L5/S1.
10. Grade 2 anterolisthesis of L5 on S1.
Sepsis (POA) due to acute UTI:
-underlying BPH
-sepsis, a/e/b leukocytosis, tachypnea, source UTI (POA)
-cont IV Rocephin
-follow BCxs/UCx
-bladder scans, urinary retention protocol
VERONICA:
-cont IVFs (NaHCO3)
-holding home aldactone/Lisinopril
-renal following
Other problems:
Hyponatremia, trend
Essential HTN: cont BB, holding JORGE LUIS/aldactone with VERONICA
Persistent atrial fibrillation: Cont Amio/BB/Eliquis
Anemia: drop in Hb likely dilutional, trend Hb
Chronic thrombocytopenia
Morbid obesity due to excess calories, h/o gastric bypass
HLD
Alcoholic cirrhosis without ascites
FULL/Eliquis
Anticipated Discharge: 24 - 48 hours
Subjective/Interval History
-
Date of Service: May 14, 2025
No new complaints. Pt states he feels better than yesterday.
Objective Data
-
Labs:
Laboratory Results
05/14/25
07:27
Sodium Pending
Potassium Pending
Chloride Pending
Carbon Dioxide Pending
BUN Pending
Creatinine Pending
Glucose Pending
Calcium Pending
Vital Signs:
Vital Signs
Temp Pulse Resp BP Pulse Ox
98.7 F 68 16 111/68 95
05/14/25 07:33 05/14/25 07:33 05/14/25 07:33 05/14/25 07:33 05/14/25 07:33
I&O
05/13/25 05/14/25 05/15/25
06:59 06:59 06:59
Intake Total 480 / 480 1740 / 1740
Output Total 425 / 425 800 / 800
Balance 55 / 55 940 / 940
[2025-05-14 08:07] LABS: Hematocrit 36.4 % (39.0-52.0); Hemoglobin 12.2 g/dL (13.0-18.0); Mean Corp Hgb Conc. 33.5 g/dL (33.0-37.0); Mean Corpuscular Volume 91.2 fL (80.0-94.0); Platelet Count 83 10^3/uL (130-400); Red Cell Dist. Width 13.2 % (11.5-14.5)
[2025-05-14] MEDS: ELIQUIS 5 MG PO ×2 (08:16→21:51)
[2025-05-14] MEDS: SODIUM BICARBONATE 1075 MEQ IV (08:16)
[2025-05-14] MEDS: PROTONIX 40 MG PO (08:16)
[2025-05-14] MEDS: TOPROL XL 50 MG PO ×2 (08:17→21:51)
[2025-05-14] MEDS: PACERONE 200 MG PO (08:17)
[2025-05-14 08:28] LABS: Blood Urea Nitrogen 34 mg/dl (9-20); Calcium 8.5 mg/dl (8.4-10.2); Carbon Dioxide 24 mmol/L (22-30); Chloride 102 mmol/L (98-107); Estimated Creatinine Clearance 66 ml/min; Glucose 109 mg/dl (70-99); Potassium 4.7 mmol/L (3.5-5.1); Sodium 133 mmol/L (135-145); eGFR 49.77
--- NOTE | 2025-05-14 13:28 | W.PN.NEPH.PH ---
Today's Communication / Plan
-
complete IVF tonight
Assessment/Plan
-
IMP:
Sepsis (POA) due to acute UTI
Large amount of perinephric fat stranding around both kidneys which is likely secondary to chronic bilateral renal disease vs Acute pyelonephritis
VERONICA-baseline cr 1.2
Hyponatremia
BPH
Essential HTN
Persistent atrial fibrillation
Anemia
Chronic thrombocytopenia
Morbid obesity due to excess calories, h/o gastric bypass
HLD
Alcoholic cirrhosis without ascites
Plan:
a/w sepsis and UTI , chr SCHAFFER with h/o BPH
perinephric stranding -not sure acute vs chronic
cont abx per primary, urine shows enterococcus
VERONICA-possible prerenal with sepsis abut he has chr SCHAFFER changes, BPH
follow bladder scan , 8cc
cr improving slowly, cont another day of IVF
no hydro noted on CT , non obst stone
improving met acidosis-on iv bicarb
monitor mild hyponatremia-improving
hold ACEI and aldactone
BP stable
labs lauro m
d/w pt
-
-
Date of Service: May 14, 2025
CC / HPI / ROS
-
Chief Complaint:
VERONICA
History of Present Illness:
cr improving to 1.5
met acidosis is better at 24
sodium improving to 133
BP stable U cx shows enterococcus
no fever
Review of Systems:
no cp or sob
no abd pain
Labs
-
Labs:
WBC 10.7 10^3/uL (4.8-10.8) 05/14/25 07:27
RBC 3.99 10^6/uL (4.70-6.10) L 05/14/25 07:27
Hgb 12.2 g/dL (13.0-18.0) L 05/14/25 07:27
Hct 36.4 % (39.0-52.0) L 05/14/25 07:27
Plt Count 83 10^3/uL (130-400) L 05/14/25 07:27
Sodium 133 mmol/L (135-145) L 05/14/25 07:27
Potassium 4.7 mmol/L (3.5-5.1) 05/14/25 07:27
Chloride 102 mmol/L (98-107) 05/14/25 07:27
Carbon Dioxide 24 mmol/L (22-30) 05/14/25 07:27
BUN 34 mg/dl (9-20) H 05/14/25 07:27
Creatinine 1.5 mg/dL (0.7-1.3) H 05/14/25 07:27
eGFR 49.77 05/14/25 07:27
Glucose 109 mg/dl (70-99) H 05/14/25 07:27
Calcium 8.5 mg/dl (8.4-10.2) 05/14/25 07:27
Albumin 4.7 g/dl (3.5-5.0) 05/12/25 18:34
Physical Exam
-
Vital Signs:
Vital Signs
Temp Pulse Resp BP Pulse Ox
98.7 F 68 16 111/68 95
05/14/25 07:33 05/14/25 08:17 05/14/25 07:33 05/14/25 08:17 05/14/25 07:33
Cardiovascular:: Regular rate and rhythm
Respiratory:: Bilateral: CTA
Lung Excursion:: Normal
Abdomen:: Nontender and Soft (obese)
Extremity Edema:: None: Bilateral: (chronic skin changes)
Moore Catheter: No
[2025-05-14 15:22] VITALS: BP 124/64
[2025-05-14] MEDS: ROCEPHIN 1000 MG IV (21:49)
[2025-05-14] MEDS: STERILE WATER FOR INJECTION 10 ML IV (21:49)
[2025-05-14 22:00] VITALS: BP 127/62
[2025-05-14 23:12] VITALS: BP 122/72
[2025-05-15 04:34] LABS: Hematocrit 37.0 % (39.0-52.0); Hemoglobin 12.4 g/dL (13.0-18.0); Mean Corp Hgb Conc. 33.5 g/dL (33.0-37.0); Mean Corpuscular Volume 91.4 fL (80.0-94.0); Platelet Count 88 10^3/uL (130-400); Red Cell Dist. Width 13.1 % (11.5-14.5)
[2025-05-15 04:46] LABS: Blood Urea Nitrogen 31 mg/dl (9-20); Calcium 8.4 mg/dl (8.4-10.2); Carbon Dioxide 25 mmol/L (22-30); Chloride 101 mmol/L (98-107); Estimated Creatinine Clearance 76 ml/min; Glucose 108 mg/dl (70-99); Potassium 4.7 mmol/L (3.5-5.1); Sodium 134 mmol/L (135-145); eGFR 59.10
--- NOTE | 2025-05-15 07:24 | W.PN.HOSP.TC ---
Addendum entered and electronically signed by Stiven Marrufo MD 05/15/25 15:38:
Total time spent on d/c = 32 min. This included today's physical exam, progress note, review of laboratory and diagnostic data, preparation of discharge documents and prescriptions, and discussions about the pt's hospital course and discharge plan
with the patient and other medical van driver involved in the patient's care.
Original Note:
Today's Communication/Plan
-
see plan
Assessment / Plan
Assessment / Plan
Gen: NAD, AAOx3.
Eyes: EOMI, PERRLA, no scleral icterus.
Neck: supple.
CV: continues to remains RRR, +S1/S2, no m/r/g.
Resp: continues to remains CTAB, no rales, wheezes, or rhonchi.
Abd: continues to remains +BS, soft, NT, ND
Skin: No rashes.
Neuro: CN 2-12 intact, non-focal.
Psych: Normal mood and affect.
05/12/25 23:31 Blood/Venous Blood Culture - Preliminary
No Growth in 48 hours- Final report to follow
05/12/25 22:46 Blood/Venous Blood Culture - Preliminary
No Growth in 48 hours- Final report to follow
05/12/25 18:34 Urine Urine Culture - Preliminary
Enterococcus species
CT A/P:
1. Mild diffuse urinary bladder wall thickening and trabeculation. Diagnostic possibilities are (1) acute cystitis or (2) chronic urinary bladder outlet obstruction.
2. Mild enlargement of the prostate gland containing radiation seeds.
3. Large amount of perinephric fat stranding around both kidneys which is likely secondary to chronic bilateral renal disease. Acute pyelonephritis is an alternative less likely diagnostic possibility.
4. Severe colonic diverticulosis.
5. Mild hepatosplenomegaly.
6. Previous cholecystectomy, appendectomy, and sleeve gastrectomy.
7. Fusiform infrarenal abdominal aortic aneurysm (2.6 cm diameter).
8. Severe calcific atherosclerotic plaque in the coronary arteries.
9. Very severe discogenic degenerative disease at L4/L5 and L5/S1.
10. Grade 2 anterolisthesis of L5 on S1.
Sepsis (POA) due to acute UTI:
-underlying BPH
-sepsis, a/e/b leukocytosis, tachypnea, source UTI (POA)
-UCx with enterococcus, stop Rocephin, change to Ampicillin
-follow UCx susceptibilities
-follow BCxs (NGTD)
-bladder scans, urinary retention protocol
VERONICA:
-resolved with IVFs with NaHCO3
-holding home aldactone/Lisinopril
-renal following
Other problems:
Hyponatremia, trend
Essential HTN: cont BB, holding JORGE LUIS/aldactone with VERONICA (and current BP trend)
Persistent atrial fibrillation: Cont Amio/BB/Eliquis
Anemia: drop in Hb was likely dilutional, Hb now stable
Chronic thrombocytopenia
Morbid obesity due to excess calories, h/o gastric bypass
HLD
Alcoholic cirrhosis without ascites
FULL/Eliquis
Anticipated Discharge: Within 24 hours
Subjective/Interval History
-
Date of Service: May 15, 2025
No new complaints.
Objective Data
-
Labs:
Laboratory Results
05/15/25
04:08
WBC 8.2
Hgb 12.4 L
Hct 37.0 L
Plt Count 88 L
Sodium 134 L
Potassium 4.7
Chloride 101
Carbon Dioxide 25
BUN 31 H
Creatinine 1.3
Glucose 108 H
Calcium 8.4
Vital Signs:
Vital Signs
Temp Pulse Resp BP Pulse Ox
98.3 F 82 16 122/72 98
05/14/25 23:12 05/14/25 23:12 05/14/25 23:12 05/14/25 23:12 05/14/25 23:12
I&O
05/14/25 05/15/25 05/16/25
06:59 06:59 06:59
Intake Total 1740 / 1740 960 / 960 480 / 480
Output Total 800 / 800 400 / 400 800 / 800
Balance 940 / 940 560 / 560 -320 / -320
[2025-05-15 07:26] VITALS: BP 109/74
[2025-05-15] MEDS: ELIQUIS 5 MG PO (09:02)
[2025-05-15] MEDS: PROTONIX 40 MG PO (09:02)
[2025-05-15] MEDS: PACERONE 200 MG PO (09:02)
[2025-05-15] MEDS: TOPROL XL 50 MG PO (09:03)
[2025-05-15] MEDS: AMPICILLIN 108 MG IV ×2 (09:05→15:23)
[2025-05-15 14:57] VITALS: BP 108/69
--- NOTE | 2025-05-15 15:38 | W.DCSUMMARY ---
Discharge Summary
Discharge Data
Date of Admission: 05/13/25
Date of Discharge: 05/15/25
-
Pending Results: No
Hospital Course
Primary diagnoses:
Sepsis due to acute urinary tract infection
Acute kidney injury
Secondary diagnoses:
Hyponatremia
Essential hypertension
Persistent atrial fibrillation
Anemia
Chronic thrombocytopenia
Benign prostatic hypertrophy
Morbid obesity due to excess calories, h/o gastric bypass
Hyperlipidemia
Alcoholic cirrhosis without ascites
Consultants:
Nephrology
Imaging:
CT A/P:
1. Mild diffuse urinary bladder wall thickening and trabeculation. Diagnostic possibilities are (1) acute cystitis or (2) chronic urinary bladder outlet obstruction.
2. Mild enlargement of the prostate gland containing radiation seeds.
3. Large amount of perinephric fat stranding around both kidneys which is likely secondary to chronic bilateral renal disease. Acute pyelonephritis is an alternative less likely diagnostic possibility.
4. Severe colonic diverticulosis.
5. Mild hepatosplenomegaly.
6. Previous cholecystectomy, appendectomy, and sleeve gastrectomy.
7. Fusiform infrarenal abdominal aortic aneurysm (2.6 cm diameter).
8. Severe calcific atherosclerotic plaque in the coronary arteries.
9. Very severe discogenic degenerative disease at L4/L5 and L5/S1.
10. Grade 2 anterolisthesis of L5 on S1.
Hospital course: 70-year-old male who presented with a chief complaint of urinary symptoms consisting of urgency, frequency, and dark urine as outlined in the H&P done on admission. Hospital course per problem list:
Sepsis due to acute urinary tract infection: The patient had underlying benign prostatic hypertrophy he met sepsis criteria on admission with leukocytosis, tachypnea, and source urinary tract infection. He initially was placed on Rocephin
empirically. His white count resolved and his symptoms improved. His urine culture resulted as Enterococcus. His Rocephin was stopped and he was switched to ampicillin. Blood cultures were no growth to date. The urine culture finalized as
pansensitive Enterococcus faecalis and the patient was discharged on 7 days of amoxicillin.
VERONICA: The patient's Aldactone and lisinopril were held. His acute kidney injury resolved with IVFs with NaHCO3. Based on his blood pressure trend while hospitalized his Aldactone and lisinopril were not restarted on discharge.
Discharge Plan
-
Patient Disposition: Home (Routine Discharge)
Discharge Diagnosis/Procedures: Sepsis due to acute urinary tract infection, acute kidney injury
Condition: Good
Diet: Low Cholesterol and 2 Gram Sodium
Activity: As tolerated
Driving Restrictions: As prior to admission
Referrals:
Han Hermosillo MD [Family Provider, [facility]] - in less than 1 week
Prescriptions:
New
amoxicillin 500 mg capsule
500 mg PO TID Qty: 21 0RF
Continued
Eliquis 5 mg tablet
5 mg PO .SEE BELOW
Patient Comments:
05/12/2025, currently on hold as of 2 days ago per pt.; pt. was taking 5 mg BID before placed on hold.
pantoprazole [Protonix] 40 mg tablet,delayed release (DR/EC)
40 mg PO DAILY Qty: 30 0RF
amiodarone 200 mg tablet
200 mg PO DAILY Qty: 0 0RF
metoprolol succinate 50 mg Tablet Extended Release 24 Hr
50 mg PO BID
diphenhydramine-acetaminophen [Tylenol PM Extra Strength] 25-500 mg Tablet
2 tab PO BIDPRN PRN (Reason: mild pain)
Discontinued
spironolactone 25 mg tablet
25 mg PO DAILY
lisinopril 10 mg Tablet
10 mg PO DAILY
Discharge Orders:
Discharge Patient (As Directed); Ordered 05/15/25
Ordered By: Stiven Marrufo
Discharge Date and Time
Print Language: DANISH
--- NOTE | 2025-05-15 16:04 | W.PN.NEPH.PH ---
Today's Communication / Plan
-
ok for d/c
f/u with PCP
Assessment/Plan
-
IMP:
Sepsis (POA) due to acute UTI
Large amount of perinephric fat stranding around both kidneys which is likely secondary to chronic bilateral renal disease vs Acute pyelonephritis
VERONICA-baseline cr 1.2
Hyponatremia
BPH
Essential HTN
Persistent atrial fibrillation
Anemia
Chronic thrombocytopenia
Morbid obesity due to excess calories, h/o gastric bypass
HLD
Alcoholic cirrhosis without ascites
Plan:
a/w sepsis and UTI , chr SCHAFFER with h/o BPH
perinephric stranding -not sure acute vs chronic
cont abx per primary, urine shows enterococcus
VERONICA-possible prerenal with sepsis abut he has chr SCHAFFER changes, BPH
follow bladder scan , 8cc
cr improving to 1.3 close to baseline
no hydro noted on CT , non obst stone
improving met acidosis
monitor mild hyponatremia-stable
hold ACEI and aldactone-resume when BP demands
BP stable
f/u PCP
d/c plan
-
-
Date of Service: May 15, 2025
CC / HPI / ROS
-
Chief Complaint:
VERONICA
History of Present Illness:
cr improving to 1.3
met acidosis is better at 25
sodium improving to 134
BP stable U cx shows enterococcus
no fever
Review of Systems:
no cp or sob
no abd pain
Labs
-
Labs:
WBC 8.2 10^3/uL (4.8-10.8) 05/15/25 04:08
RBC 4.05 10^6/uL (4.70-6.10) L 05/15/25 04:08
Hgb 12.4 g/dL (13.0-18.0) L 05/15/25 04:08
Hct 37.0 % (39.0-52.0) L 05/15/25 04:08
Plt Count 88 10^3/uL (130-400) L 05/15/25 04:08
Sodium 134 mmol/L (135-145) L 05/15/25 04:08
Potassium 4.7 mmol/L (3.5-5.1) 05/15/25 04:08
Chloride 101 mmol/L (98-107) 05/15/25 04:08
Carbon Dioxide 25 mmol/L (22-30) 05/15/25 04:08
BUN 31 mg/dl (9-20) H 05/15/25 04:08
Creatinine 1.3 mg/dL (0.7-1.3) 05/15/25 04:08
eGFR 59.10 05/15/25 04:08
Glucose 108 mg/dl (70-99) H 05/15/25 04:08
Calcium 8.4 mg/dl (8.4-10.2) 05/15/25 04:08
Albumin 4.7 g/dl (3.5-5.0) 05/12/25 18:34
Physical Exam
-
Vital Signs:
Vital Signs
Temp Pulse Resp BP Pulse Ox
97.9 F 69 20 108/69 99
05/15/25 14:57 05/15/25 14:57 05/15/25 14:57 05/15/25 14:57 05/15/25 14:57
Cardiovascular:: Regular rate and rhythm
Respiratory:: Bilateral: CTA
Lung Excursion:: Normal
Abdomen:: Nontender and Soft (obese)
Extremity Edema:: None: Bilateral: (chronic skin changes)
Moore Catheter: No
== END 2025-05-15 17:32 | disposition home or self-care (01) ==
LOC: 3 WEST ACU 00:29
PROVIDERS: Emergency Medicine; Nurse Practitioner Family; Physician Assistant; ADMITTING PHYSICIAN Internal Medicine; ATTENDING PHYSICIAN Internal Medicine; CONSULT PHYSICIAN Internal Medicine; EMERGENCY PHYSICIAN Emergency Medicine; FAMILY PHYSICIAN Family Medicine
DX: A41.9 Sepsis, unspecified organism (principal); N39.0 Urinary tract infection, site not specified; B95.2 Enterococcus as the cause of diseases classified elsewhere; N17.9 Acute kidney failure, unspecified; E87.1 Hypo-osmolality and hyponatremia; I10 Essential (primary) hypertension; D64.9 Anemia, unspecified; I48.19 Other persistent atrial fibrillation; D69.6 Thrombocytopenia, unspecified; N40.1 Benign prostatic hyperplasia with lower urinary tract symptoms; E66.01 Morbid (severe) obesity due to excess calories; E78.00 Pure hypercholesterolemia, unspecified; K57.30 Diverticulosis of large intestine without perforation or abscess without bleeding; K70.30 Alcoholic cirrhosis of liver without ascites; E87.20 Acidosis, unspecified; Z68.41 Body mass index [BMI] 40.0-44.9, adult; Z79.01 Long term (current) use of anticoagulants; Z79.899 Other long term (current) drug therapy; Z87.891 Personal history of nicotine dependence; Z98.84 Bariatric surgery status; Z90.49 Acquired absence of other specified parts of digestive tract
CPT/HCPCS: 74176; 80048; 80053; 81003; 81015; 83605; 85025; 85027; 86803; 87040; 87077; 87086; 87186; 96361; 96374; 99284; G0378; J7030

== ENCOUNTER 2025-06-01 06:08 | Day surgery (SDC) | payer OTHER, SELFPAY ==
--- NOTE | 2025-03-23 14:50 | CM ---
Late Note 03/18/2025
CM reviewed medical records. CM spoke with patient via live telephone. Patient confirmed demographics. Patient lives independently alone. Patient confirmed that he lives on the first floor. Patient stated that daughter is going to be available for
assistance. Ptient has had a history of [facility] but is currently not on service. Patient is active with his PCP. Patient uses [facility] for medication serviecs.
Patient has a rollator, hip kit and has been fitted for his sling.
PLAN: home with outpatient PT when medically cleared.
[2025-05-23 11:25] LABS: Hematocrit 37.8 % (39.0-52.0); Hemoglobin 12.2 g/dL (13.0-18.0); Mean Corp Hgb Conc. 32.3 g/dL (33.0-37.0); Mean Corpuscular Volume 94.7 fL (80.0-94.0); Platelet Count 211 10^3/uL (130-400); Red Cell Dist. Width 13.4 % (11.5-14.5)
[2025-05-23 11:57] LABS: ALT (SGPT) 21 U/L (0-50); AST (SGOT) 20 U/L (17-59); Albumin 4.2 g/dl (3.5-5.0); Alkaline Phosphatase 68 U/L (38-126); Blood Urea Nitrogen 24 mg/dl (9-20); Calcium 9.5 mg/dl (8.4-10.2); Carbon Dioxide 25 mmol/L (22-30); Chloride 107 mmol/L (98-107); Glucose 91 mg/dl (70-99); Potassium 5.1 mmol/L (3.5-5.1); Sodium 140 mmol/L (135-145); Total Protein 7.5 g/dl (6.3-8.2); eGFR 54.07
[2025-05-23 13:33] LABS: Glycohemoglobin (HgbA1c) 5.6 % (4.0-5.6)
[2025-05-23 13:59] VITALS: BMI 43.6
[2025-05-23 15:57] VITALS: BMI 43.6
[2025-06-01] VITALS (9 sets, daily range): BP systolic 108–129; BP diastolic 58–105; BMI 43.6
[2025-06-01] MEDS: TYLENOL 1000 MG PO (11:53)
[2025-06-01] MEDS: CELEBREX 200 MG PO (11:53)
[2025-06-01] MEDS: NORMOSOL-R/PLASMALYTE-A 1000 IV (11:53)
[2025-06-01] MEDS: EMEND 40 MG PO (12:50)
[2025-06-01] MEDS: ANCEF 5 IV (19:41)
== END 2025-06-01 20:00 | disposition home or self-care (01) ==
LOC: SDS 06:08
PROVIDERS: ATTENDING PHYSICIAN Orthopaedic Surgery Hand Surgery; FAMILY PHYSICIAN Family Medicine; OTHER PHYSICIAN Physician Assistant; REFERRING PHYSICIAN Internal Medicine Cardiovascular Disease
DX: M19.011 Primary osteoarthritis, right shoulder (principal)
CPT/HCPCS: 23472; 36415; 73020; 80053; 83036; 85027; 87070

== ENCOUNTER 2025-08-09 08:34 | Emergency (ER) | payer OTHER, SELFPAY ==
[2025-08-09 08:36] VITALS: BP 171/75
--- NOTE | 2025-08-09 09:21 | ED.GENMED ---
History of Present Illness
General
Chief Complaint: Cough
Time Seen by Provider: 08/09/25 09:03
History of Present Illness
History of Present Illness:
70-year-old male with history of A-fib status post ablation, hypertension, hyperlipidemia, former smoker, obstructive sleep apnea, and cirrhosis presents to the emergency department for evaluation of cough and nasal congestion ongoing for the past 2
weeks. Worse when lying flat and when waking up in the morning. Cough is productive of thick green and yellow mucus. Denies fevers or chills. Notes to be wheezing when walking.
Past History
Past History
ED Past Medical History: HTN, Hypercholesterolemia and Other (Obesity, lumbar disc disease)
ED Past Surgical History: Appendectomy, Orthopedic (Total knee replacement) and Other (Partial gastrectomy for treatment of obesity, 2007)
Social History
Tobacco: Former smoker
Alcohol: Occasional
Personal:
Living: with family
Employment: Employed
Family History
Family History: Negative Early CAD
Review of Systems
Review of Systems
Allergies reviewed?: Yes
All Other Systems: ROS reviewed and negative except as documented in HPI and ROS
Phy Exam
Physical Exam
Physical Exam:
GEN: Well appearing, NAD, WDWN
HEENT: Oral mucosa moist, no scleral icterus, TMs clear bilaterally with no erythema
Cardiac: Regular rate and rhythm, no murmur
Lung: No respiratory distress, no tachypnea, expiratory wheezes/rhonchi heard throughout all lung acuna, clears with cough rapidly reaccumulating
MSK: No gross deformity or injuries
Skin: Good color, no pallor or jaundice, no rashes
Neuro: AO x3, moves all extremities freely
Psych: Calm, cooperative
Course
Orders/Labs/Results
Orders:
Orders
08/09/25 09:21
Ipratropium/Albuterol Sulfate [Duoneb] 3 ml INH R NOW ONE
Vital Signs
Initial and Last Documented VS:
Initial Vital Signs
Pulse Resp BP Pulse Ox
63 20 171/75 95
08/09/25 08:36 08/09/25 08:36 08/09/25 08:36 08/09/25 08:36
Last Documented Vital Signs
Pulse Resp BP Pulse Ox
63 20 171/75 95
08/09/25 08:36 08/09/25 08:36 08/09/25 08:36 08/09/25 09:21
MDM/Problems Addressed
MDM/Problems Addressed:
Patient's symptoms most likely represent mucopurulent bronchitis, given duration greater than 2 weeks of symptoms will treat with antibiotics and a course of steroids based on his wheezing. At this time I do not see that there will be any benefit
from chest x-ray
*Pulse Oximetry
SaO2: 95
Oxygen Mode of Delivery: Room air
Patient hypoxic: no
*Critical Care Note
Total Time (30-74mins, 75-104mins- exclusive of procedures): Not Applicable
ED Attending Note
-
Portions of this chart may have been created with voice recognition software.� Occasional wrong word or��sound alike� substitutions may have occurred due to the inherent limitations of voice recognition software.
Discharge Plan
Departure
Patient Disposition: Home (Routine Discharge)
Date of Disposition: 08/09/25
Time of Disposition: 10:00
Patient with high blood pressure during this ER visit?: No
Discharge Problem:
Bronchitis
Instructions: Acute Bronchitis, Adult (DC)
Prescriptions:
New
doxycycline monohydrate 100 mg capsule
100 mg PO BID Qty: 10 0RF
methylprednisolone [Medrol (Kleber)] 4 mg tablets,dose pack
See Rx Instructions .ROUTE .COMPLEX Qty: 21 0RF
Rx Instructions:
orally per package directions
No Action
Eliquis 5 mg tablet
5 mg PO BID
Patient Comments:
05/12/2025, currently on hold as of 2 days ago per pt.; pt. was taking 5 mg BID before placed on hold.
amiodarone 200 mg tablet
200 mg PO DAILY Qty: 0 0RF
loratadine 10 mg Tablet
10 mg PO DAILY PRN (Reason: ALLERGY)
pantoprazole [Protonix] 40 mg tablet,delayed release (DR/EC)
40 mg PO DAILY
oxycodone 5 mg tablet
5 - 10 mg PO Q6H PRN (Reason: moderate-severe pain) Qty: 30 0RF
Rx Instructions:
1 tab for moderate pain, 2 if severe.
Dx total joint.
gabapentin 300 mg capsule
300 mg PO HS Qty: 10 0RF
doxycycline monohydrate 100 mg capsule
100 mg PO BID Qty: 7 0RF
Rx Instructions:
Start night of discharge and continue twice a day until finished.
Take with probiotic.
mupirocin 2 % ointment
1 applic intranasal BID Qty: 1 0RF
Patient Comments:
started treatment friday05/29/25 and completed BID, last took at home 06/01/25 am
ondansetron HCl 4 mg tablet
4 mg PO Q6H PRN (Reason: nausea and vomiting) Qty: 30 0RF
docusate sodium [Colace] 100 mg capsule
100 mg PO BID Qty: 30 0RF
sennosides [senna] 8.6 mg tablet
17.2 mg PO BID Qty: 30 0RF
Saccharomyces boulardii [Florastor] 250 mg capsule
250 mg PO BID Qty: 7 0RF
Rx Instructions:
Over the counter. Take while on antibiotic.
If unavailable, choose a different probiotic.
Eliquis 2.5 mg tablet
2.5 mg PO BID Qty: 5 0RF
Rx Instructions:
Cut 5 mg tab in 11/04 (= 2.5 mg) and take 06/01 PM, 06/02 and 06/03 AM and PM.
DO NOT resume Eliquis 5 mg 2x daily until 8/ AM.
cyclobenzaprine 10 mg Tablet
10 mg PO BIDPRN PRN (Reason: MUSCLE SPASMS) Qty: 1 0RF
Rx Instructions:
Home medication. Caution with Oxycodone - can cause drowsiness.
Space out from narcotic to prevent over-sedation.
spironolactone 25 mg Tablet
25 mg PO DAILY Qty: 1 0RF
Rx Instructions:
HOLD IF systolic blood pressure <130 while on post-surgical narcotics.
lisinopril 10 mg Tablet
10 mg PO DAILY Qty: 1 0RF
Rx Instructions:
HOLD IF systolic blood pressure <130 while on post-surgical narcotics.
acetaminophen 500 mg Capsule
500 mg PO TIDPRN PRN (Reason: breakthrough pain) Qty: 0 0RF
Rx Instructions:
DO NOT exceed >1500 mg daily
metoprolol succinate 50 mg Tablet Extended Release 24 Hr
50 mg PO BID
Referrals:
Han Hermosillo MD [Family Provider, Family Practice]
Interventions
Interventions:
*Risk Screen - Suicide Last Done: 08/09/25 08:36
*General Assessment Last Done: 08/09/25 10:02
*Neglect/Abuse Screening Last Done: 08/09/25 10:02
*ED- Fall Risk Assessment Last Done: 08/09/25 09:04
*ED COVID-19 Vaccine History Last Done: 08/09/25 09:04
*ED Influenza Vaccine History Last Done: 08/09/25 09:04
*Nursing Disposition Last Done: 08/09/25 10:04
ED- Pulmonary Assessment Last Done: 08/09/25 09:05
Discharge Date and Time
Discharge Date/Time: 08/09/25 10:10
Print Language: [id number]
[2025-08-09] MEDS: DUONEB 3 ML INH (09:25)
== END 2025-08-09 10:10 | disposition home or self-care (01) ==
LOC: EMR 08:34
PROVIDERS: EMERGENCY PHYSICIAN Emergency Medicine; FAMILY PHYSICIAN Family Medicine
DX: J40 Bronchitis, not specified as acute or chronic (principal); I10 Essential (primary) hypertension; E78.00 Pure hypercholesterolemia, unspecified; Z87.891 Personal history of nicotine dependence; G47.33 Obstructive sleep apnea (adult) (pediatric); I48.91 Unspecified atrial fibrillation; K74.60 Unspecified cirrhosis of liver; Z90.49 Acquired absence of other specified parts of digestive tract
CPT/HCPCS: 94640; 99283